=== PATIENT | female | born 1935 | race African-American/Black ===

== ENCOUNTER 2018-11-02 14:39 | Emergency (ER) | payer MEDICARE, OTHER, SELFPAY ==
[2018-11-02 14:40] VITALS: BP 144/102; PULSE 98; RESP 17; TEMP 36.5; O2SAT 97; BMI 39.8
--- NOTE | 2018-11-02 14:54 | EKG12_ITS ---
Test Reason : Blood Pressure : / mmHG Vent. Rate : 084 BPM Atrial Rate : 084 BPM P-R Int : 148 ms QRS Dur : 082 ms QT Int : 370 ms P-R-T Axes : 039 -46 058 degrees QTc Int : 437 ms Normal sinus rhythm Left axis deviation Abnormal ECG Confirmed by RADHA CRANE ([id number]), senior editor MERCEDEZ YUNG ([id number] on 11/06/2018 4:54:26 PM Referred By: FELIPE Confirmed By:RADHA CRANE
--- NOTE | 2018-11-02 14:57 | ED.VISSUMM ---
- ER Visit Summary Date of Service: 11/02/18 Chief Complaint: Nausea, vomiting, diarrhea History of Present Illness: The patient is a 83 F presents to the emergency department nausea, vomiting, diarrhea. The patient states that she woke this morning. She states that she was having some sweats. She states she got acutely nauseated and had to vomit. She states when she did she also had loose watery diarrhea. She is vomited twice. She had 3 episodes of loose watery diarrhea. She denies any pain. She has had some dry heaves today. She denies any dyspnea, but states she has been feeling weak. She is been compliant with her medications. She denies any recent travel. She denies any recent antibiotic use. She has not had blood in either the emesis or the diarrhea. Physical Examination: Vital signs reviewed General: Well-nourished, well-developed Head: Normocephalic, atraumatic Eyes: Pupils equal and reactive, extraocular muscles intact Neck, supple, no lymphadenopathy Heart: Regular rate and rhythm Respiratory: No distress, clear bilaterally Abdomen: Soft, nontender, nondistended, no peritoneal signs Back: Nontender Extremities: Nontender, no edema, no cords Skin: Normal color no rash Neuro: Alert and oriented, no focal or lateralizing deficits Test Results: [] Emergency Department Course and Treatment: The patient's abdomen was soft and nontender. EKG was obtained. It was sinus rhythm without acute ischemia. We did have difficulty obtaining IV access. We were able to get lab work. She does have mild leukocytosis with a feels like a reactive. The rest of her labs are at her baseline. Cardiac enzymes were normal. With Zofran, her symptoms have resolved. She was able to drink in the room. She has had no pain. I do feel that she is safe for outpatient therapy. She continues to have a soft nontender abdomen. Family is comfortable with this plan of care. She was counseled on concerning symptoms. She will be discharged home. Treatment Plan: [] Disposition: Discharge Impression: 1. Gastroenteritis This note was generated with [employer] software. It may contain incorrect words, spelling, and punctuation that were not noted in review of the chart prior to signing ED Disposition - Plan for ED Patient: Disposition: Home or Assisted Living Instructions: ED Gastroenteritis Vs Food Poison Prescriptions: Ondansetron [Zofran Odt] 4 mg PO Q8H PRN PRN #10 tab PRN Reason: Nausea Referrals: [facility] Doctor,Out of [Primary Care Provider] -
[2018-11-02 15:57] LABS: Bacteria 0 SEEN /hpf (None Seen); Mucous, Urine 0 SEEN /hpf (<or=2+); Red Blood Cells-Urine 0 SEEN /hpf (0-5)
[2018-11-02 16:11] LABS: Color, Urine Yellow (Yellow); Glucose, Dipstick Normal (Normal); Ketone-Dipstick Negative (Negative); Leukocyte Esterase-Dipstick 100 /ul (Negative); Nitrite-Dipstick Negative (Negative); Occult Blood-Urine Negative /ul (Negative); Protein-Dipstick 30 mg/dl (Negative); Urine Bilirubin Dipstick Negative (Negative); Urine Clarity Clear (Clear); Urine Urobilinogen Normal (Normal)
[2018-11-02 16:14] VITALS: TEMP 36.5
[2018-11-02 16:21] LABS: Squamous Epithelial Cells - UA 0-5 SEEN /hpf (5-10); White Blood Cells 0-5 SEEN /hpf (0-5)
[2018-11-02] MEDS: Ondansetron 4 MG/2 ML Vial IV (16:54)
[2018-11-02 17:23] LABS: Absolute Neutrophil Count 14.3 X10^3/uL (2.0-7.7); Basophil# 0.02 X10^3/uL; Basophil% 0.1 % (0-1); Eosinophil# 0.03 X10^3/uL; Eosinophils% 0.2 % (0-5); Hematocrit 39.2 % (37-47); Lymphocyte % 7.4 % (19-41); Mean Corp Hgb Conc 33.2 g/gl (32-36); Mean Corpuscular Hgb 31.8 pg (27.0-32.0); Mean Corpuscular Volume 95.8 fL (81-99); Mean Platelet Vol. 10.3 fl (6.2-12.0); Monocyte# 0.62 X10^3/uL; Monocyte% 3.8 % (0-10); Neutrophil # 14.33 X10^3/uL (2.7-7.7); Neutrophil % 88.3 % (47-70); Platelet Count 220 K/mm3 (150-450); RBC Distribution Width CV 13.6 % (11.6-14.6); RBC Distribution Width SD 47.5 fl (35.1-43.9); Red Blood Count 4.09 M/mm3 (4.2-5.4); White Blood Count 16.2 K/mm3 (4.4-11.0)
[2018-11-02 17:26] LABS: POSITIVE COUNT NO; POSITIVE DIFFERENTIAL NO; POSITIVE MORPHOLOGY NO
[2018-11-02 17:41] LABS: ALB/GLOB Ratio 0.8 RATIO (0.9-2.4); AST(SGOT) 18 U/L (15-37); Alanine Aminotransfer ALT/SGPT 23 U/L (13-56); Albumin, Serum 3.6 g/dL (3.2-5.0); Alkaline Phosphatase 83 U/L (45-117); Anion Gap 9 (5-15); BUN 29 mg/dL (7-18); BUN/Creat Ratio 23.2 RATIO (10-20); Calcium,Total 9.6 mg/dL (8.5-10.1); Chloride 108 mmol/L (98-107); Creatinine, Serum 1.25 mg/dL (0.55-1.02); EST Glomerular Filtration Rate 43 mL/min (>60); Est Glom Filt Rate - Afr Amer 53 mL/min (>60); Estimated Creatinine Clearance 28.21 ml/min; Globulin 4.3 g/dL (2.2-4.2); Glucose 106 mg/dL (74-106); Lipase 80 U/L (73-393); Potassium 4.4 mmol/L (3.5-5.1); Protein, Total 7.9 g/dL (6.4-8.2); Sodium Level 137 mmol/L (136-145)
[2018-11-02 17:54] VITALS: BP 130/85; PULSE 83; RESP 17; O2SAT 100
== END 2018-11-02 17:55 | disposition home or self-care (01) ==
LOC: ED 15:13
PROVIDERS: Emergency Provider Emergency Medicine
DX: K52.9 Noninfective gastroenteritis and colitis, unspecified (principal); I10 Essential (primary) hypertension; E78.00 Pure hypercholesterolemia, unspecified; Z79.899 Other long term (current) drug therapy
CPT/HCPCS: 36415; 80053; 81001; 83690; 84484; 85025; 93005; 96374; 99285; A4216; J2405